=== PATIENT | male | born 1995 | race Caucasian/White ===

== ENCOUNTER → 2016-07-10 | Outpatient (CLI) | payer OTHER ==
--- NOTE | 2016-07-10 13:34 | NUR ---
Eval 2 Hr/Client presented for an eval as a refferral from probation.
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
== END | disposition home or self-care (01) ==
LOC: ADTC.GI 08:51
DX: F10.20 Alcohol dependence, uncomplicated (principal); F15.20 Other stimulant dependence, uncomplicated